=== PATIENT | male | born 1990 | race Caucasian/White ===

== ENCOUNTER 2019-09-08 09:13 | Emergency (ER) | payer SELFPAY ==
[2019-09-08 10:01] VITALS: BP 130/88
--- NOTE | 2019-09-08 10:04 | ED ---
Throat Pain/Nasal Congestion - HPI Summary HPI Summary: This patient is an otherwise healthy 29-year-old male presenting to the ED with dental pain. Patient states he has dental pain to the right side, over tooth # 28. He states he has had a previous cavity to this area and recently the inner motion of the cavity fell out. The cavity fell out approximately 3 weeks ago and he has been having dental pain over the past several days. He feels this has been getting worse. He denies any erythema to the cheek. Denies any fevers , sweats, chills. Denies any swelling over the cheek. He has tried Anbesol and ibuprofen [id number] without much relief. He states symptoms reduced from a 9/10 to approximately a 6/10. He has not tried Tylenol. He has never had a dental infection in the past. Recently moved to the area and does not have a PCP or dentist. - History of Current Complaint Chief Complaint: EDDentalPain Time Seen by Provider: 09/08/19 09:32 Hx Obtained From: Patient Onset/Duration: Sudden Onset Severity: Moderate Associated Signs And Symptoms: Negative: Dysphagia, FB Sensation, Drooling, Wheezing - Epiglottits Risk Factors Epiglottis Risk Factors: Negative - Allergies/Home Medications Allergies/Adverse Reactions: Allergies Allergy/AdvReac Type Severity Reaction Status Date / Time No Known Allergies Allergy Verified 09/08/19 09:19 Home Medications: Home Medications HYDROcodone/ACETAMIN 5-325 MG* [Alton 5-325 TAB*] 1 tab PO Q4H PRN #18 tab MDD 6 09/08/19 [Rx] Ibuprofen TAB* [Advil TAB*] 200 - 800 mg PO Q6H PRN 09/08/19 [History Confirmed 09/08/19] Penicillin VK 500 MG TAB(NF) [Penicillin VK 500 mg Tab(NF)] 500 mg PO QID #20 tab MDD 4 09/08/19 [Rx] PMH/Surg Hx/FS Hx/Imm Hx Previously Healthy: Yes - Immunization History Hx Pertussis Vaccination: No Immunizations Up to Date: Yes Infectious Disease History: No Infectious Disease History: Denies: Traveled Outside the [place] in Last 30 Days - Social History Occupation: Employed Full-time Lives: With Family Alcohol Use: None Hx Substance Use: No Substance Use Type: Reports: None Smoking Status (MU): Heavy Every Day Tobacco Smoker Review of Systems Negative: Fever, Chills, Fatigue, Skin Diaphoresis Positive: Dental Pain Negative: Palpitations, Chest Pain Negative: Cough Genitourinary: Negative Positive: no symptoms reported Negative: Arthralgia, Myalgia Negative: Rash, Bruising Neurological/Mental Status: Negative All Other Systems Reviewed And Are Negative: Yes Physical Exam Triage Information Reviewed: Yes Vital Signs On Initial Exam: Initial Vitals Temp Pulse Resp BP Pulse Ox 98.0 F 59 16 133/96 99 09/08/19 09:16 09/08/19 09:16 09/08/19 09:16 09/08/19 09:16 09/08/19 09:16 Vital Signs Reviewed: Yes Appearance: Positive: Well-Appearing, Well-Nourished Skin: Positive: Warm, Skin Color Reflects Adequate Perfusion Head/Face: Positive: Normal Head/Face Inspection Eyes: Positive: EOMI, VAUGHN, Conjunctiva Clear Dental: Positive: Gross Decay/Caries @, Dental Fracture @ - tooth #28. Negative : Bleeding, Oropharynx, Foreign body Neck: Positive: Supple, No Lymphadenopathy Respiratory/Lung Sounds: Positive: Clear to Auscultation, Breath Sounds Present Cardiovascular: Positive: RRR Musculoskeletal: Positive: Normal, Strength/ROM Intact Neurological: Positive: Speech Normal Psychiatric: Positive: Affect/Mood Appropriate Procedures - Sedation Patient Received Moderate/Deep Sedation with Procedure: No Diagnostics - Vital Signs Vital Signs Temp Pulse Resp BP Pulse Ox 09/08/19 09:16 98.0 F 59 16 133/96 99 - Laboratory Lab Statement: Any lab studies that have been ordered have been reviewed, and results considered in the medical decision making process. EENT Course/Dx - Course Course Of Treatment: On physical examination, there is a cavity over tooth #28. This shows no surrounding erythema, signs of abscess or any drainage from the area. He does have pain on palpation to the cheek. No fevers, sweats, chills. Vital signs are stable. States has been using ibuprofen without much relief of symptoms. Given penicillin and rx for hydrocodone for pain. Given note for work, dental referrals and care connections referral. - Differential Diagnoses Differential Diagnoses: Fractured Tooth, Other - dental infection - Diagnoses Provider Diagnoses: Pain, dental Discharge ED - Sign-Out/Discharge Documenting (check all that apply): Patient Departure - Discharge Plan Condition: Stable Disposition: HOME Prescriptions: HYDROcodone/ACETAMIN 5-325 MG* [Alton 5-325 TAB*] 1 tab PO Q4H PRN #18 tab MDD 6 PRN Reason: Pain Penicillin VK 500 MG TAB(NF) [Penicillin VK 500 mg Tab(NF)] 500 mg PO QID #20 tab MDD 4 Patient Education Materials: Toothache (ED) Forms: *Work Release Referrals: [facility] [Outside] No Primary Care Phys,NOPCP [Primary Care Provider] - Additional Instructions: Discharge: You have been diagnosed with dental pain with possible infection: Antibiotics as prescribed to you. Penicillin four times daily x 5 days. To minimize the potential for gastrointestinal intolerance, Penicillin should be taken at the start of a meal. If you have any questions about your medication, please contact us or ask your pharmacist. Salt water rinses several times per day will improve healing time. Ibuprofen 600mg four times daily with meals for discomfort. - take on opposite schedule of your tylenol and hydrocodone Tylenol 650mg four times daily for pain (only during work hours when NOT taking hydrocodone, as this has tylenol IN IT) Use these medications intermittently May use over the counter ambesol or clove oil for discomfort Follow up with a dentist for routine care to prevent recurrence of infections. If fever, worsening pain or swelling develops, see your PCP, dentist or come back to the Emergency Department. - Billing Disposition and Condition Condition: STABLE Disposition: Home
== END 2019-09-08 10:00 | disposition home or self-care (01) ==
LOC: ED 09:13
DX: K08.89 Other specified disorders of teeth and supporting structures (principal); K02.9 Dental caries, unspecified; F17.200 Nicotine dependence, unspecified, uncomplicated
CPT/HCPCS: 99282